=== PATIENT | female | born 1990 | race African-American/Black ===

== ENCOUNTER 2020-09-22 09:36 | Emergency (ER) | payer OTHER ==
[~2020-09-22] VITALS: Ht 157.5 cm; Wt 74.8 kg
[~2020-09-22 09:36] MED LIST: ALBUTEROL INHAL17 GM IH; APAP500 PO; ATIVAN1 MG PO; DERMOPLAST SPRA56 ML; IBUPROFEN 400400 M1 PO; IBUPROFEN 600600 M1 PO; IRON325 M1 PO; MIRALAX255 GM PO; NOHOMEMEDICATIONS; NORCO 5-325 TA1 EACH PO; ONDANSETRON ODT4 MG PO; PHENERGAN 25 MG25 M1 PO; PRENATAL; PRILOSEC 20 MG20 MG PO; SEASONALE1 EACH; TUCKS MEDICATE1 EAC1; ZOFRAN ODT4 MG PO
[2020-09-22 09:37] VITALS: BP 99/68
[2020-09-22] MEDS ORDERED: SEROQUEL400 MG PO (09:43)
[2020-09-22] MEDS ORDERED: PROZAC10 M1 PO (09:43)
== END 2020-09-22 11:46 | disposition home or self-care (01) ==
LOC: ER 09:36
DX: R51.9 Headache, unspecified (principal); Z79.899 Other long term (current) drug therapy; Z20.822 Contact with and (suspected) exposure to COVID-19